=== PATIENT | female | born 1975 | race Caucasian/White ===

== ENCOUNTER 2019-09-07 16:17 | Emergency (ER) | payer OTHER ==
[2019-09-07 16:22] VITALS: RESP 18; TEMP 98.6
[2019-09-07] MEDS ORDERED: SODIUM CHLORIDE 0.9% 1,000 ML IV ONE ×2 (16:47→18:38)
[2019-09-07] MEDS ORDERED: SODIUM CHLORIDE 0.9% 500 ML 500 ML IV ONE (16:47)
[2019-09-07] MEDS ORDERED: SODIUM CHLORIDE 0.9% 1,000 ML IV SCH (17:00)
[2019-09-07 17:15] LABS: Basophils % (A) 0 %; Eosinophils # (A) 0.2 k/uL (0-0.7); Eosinophils % (A) 2 %; HCT 43.2 % (34.0-46.0); Lymphocytes % (A) 8 %; MCHC 34.8 g/dL (31.0-37.0); MCV 92.1 fL (80.0-100.0); Mean Platelet Volume 9.7; Monocytes # (A) 0.3 k/uL (0-1.0); Monocytes % (A) 2 %; Neutrophils # (A) 10.6 k/uL (1.3-7.7); Neutrophils % (A) 87 %; Platelet Count 176 k/uL (150-450); RDW 12.9 % (11.5-15.5); WBC 12.1 k/uL (3.8-10.6)
[2019-09-07 17:35] LABS: AST 55 U/L (14-36); African American GFR (CKD) >90 (>60 ml/min/1.73 sqM); Albumin 4.3 g/dL (3.5-5.0); Alkaline Phosphatase 105 U/L (38-126); Amylase 32 U/L (30-110); Anion Gap 12 mmol/L; Blood Urea Nitrogen 5 mg/dL (7-17); Calcium 9.2 mg/dL (8.4-10.2); Carbon Dioxide 18 mmol/L (22-30); Chloride 106 mmol/L (98-107); Glucose 120 mg/dL (74-99); Non-African American GFR(CKD) >90 (>60 ml/min/1.73 sqM); Potassium 3.5 mmol/L (3.5-5.1); Sodium 136 mmol/L (137-145); Total Protein 7.1 g/dL (6.3-8.2)
[2019-09-07 17:37] LABS: Amorphous Sediment,Urine Occasional /hpf; Appearance,Urine Turbid (Clear); Bilirubin,Urine Negative (Negative); Blood,Urine Trace (Negative); Color,Urine Light Brown; Glucose,Urine (UA) Negative (Negative); Ketones,Urine Trace (Negative); Leukocyte Esterase,Urine Trace (Negative); Mucus,Urine Many /hpf; Nitrite,Urine Negative (Negative); PH, Urine 5.5 (5.0-8.0); Protein,Urine 1+ (Negative); RBC,Urine 5 /hpf (0-5); Specific Gravity,Urine 1.022 (1.001-1.035); Squamous Epithelial Cell,Urine 5 /hpf (0-4)
[2019-09-07 17:41] LABS: ALT 29 U/L (4-34)
--- NOTE | 2019-09-07 17:43 | US ---
EXAMINATION TYPE: US abdomen limited DATE OF EXAM: 09/07/2019 COMPARISON: NONE CLINICAL HISTORY: RUQ Pain. abd pain with diarrhea and fever today EXAM MEASUREMENTS: Liver Length: 18.0 cm Gallbladder Wall: 0.1 cm CBD: 0.6 cm Right Kidney: 11.0 x 4.5 x 4.2 cm Pancreas: wnl Liver: wnl Gallbladder: wnl Evidence for sonographic Kirk's sign: no CBD: wnl Right Kidney: wnl IMPRESSION: Normal exam. No gallstones or dilated ducts. No focal liver defect.
--- NOTE | 2019-09-07 18:27 | CT ---
EXAMINATION TYPE: CT abdomen pelvis w con DATE OF EXAM: 09/07/2019 COMPARISON: HISTORY: Right side abdominal pain CT DLP: 773 mGycm Automated exposure control for dose reduction was used. CONTRAST: Performed with IV Contrast, patient injected with 100 mL of Isovue 300. CT scan abdomen pelvis. History right side pain. Comparison none. TECHNIQUE: Multiple axial sections were obtained from the diaphragm to the floor the pelvis with IV contrast. FINDINGS: Lung bases are clear. There is no pleural effusion. Heart size is normal. Liver spleen stomach pancreas gallbladder appear normal. Bile ducts are not dilated. There is no adrenal mass. Kidneys show satisfactory contrast opacification. There is no hydronephrosi s. Ureters are not dilated. There is some free fluid in the pelvis. Bladder is almost empty. There ar e numerous surgical clips in the pelvis. There is hysterectomy. There is no inguinal hernia. I see no sign of a bowel obstruction. Appendix is inferior and medial and appears normal. There is no mesente servando edema. There is no ascites. There is no sign of free air. Lumbar vertebra have normal alignment. There is narrowing at L5-S1 disc with vacuum disc. Facet joint s are intact. The bony pelvis appears intact. IMPRESSION: Pelvic surgery. There is free fluid in the pelvis that measures up to 1 cm in thickness. Clinical sig nificance is not clear. Normal appendix.
[2019-09-07] MEDS ORDERED: HYDROmorphone 0.5 MG/0.5 ML SYRINGE IVP STA (18:38)
[2019-09-07] MEDS ORDERED: ONDANSETRON 4 MG/2 ML VIAL IVP STA (18:38)
[2019-09-07 18:50] VITALS: BP 108/66; PULSE 92
--- NOTE | 2019-09-07 19:10 | ED ---
Abdominal Pain HPI - General Chief Complaint: Abdominal Pain Stated Complaint: Abd pain, fever Time Seen by Provider: 09/07/19 16:24 Source: patient Mode of arrival: ambulatory Limitations: no limitations - History of Present Illness Initial Comments: 44-year-old male presenting today for chief complaint of abdominal pain nausea vomiting diarrhea. Patient states that she has chronic right-sided abdominal pain and no one seems to know what is going on. She states that she has had her gallbladder evaluated a few years ago and states that this was negative she states she's also had upper EGD and lower EGD in the past. Patient states that today she is having profuse diarrhea and an episode of vomiting. Patient states she has some nausea. Patient states that she was ready associated fever but denies recording a temperature. Patient states that due to the diarrhea she decided to come to the ER. Denies abnormal symptoms yesterday. Patient states that the right sided abdominal pain is slightly worse than her baseline, aching in nature, denies radiation. Overall poor at describing pain. Upon arrival patient appears well on arrival. - Related Data Previous Rx's Medication Instructions Recorded Cephalexin [Keflex] 500 mg PO Q12HR 3 Days #6 cap 09/07/19 Ondansetron Odt [Zofran Odt] 4 mg PO Q8HR PRN 7 Days #21 tab 09/07/19 Allergies Allergy/AdvReac Type Severity Reaction Status Date / Time No Known Allergies Allergy Verified 09/07/19 16:22 Review of Systems ROS Statement: Those systems with pertinent positive or pertinent negative responses have been documented in the HPI. ROS Other: All systems not noted in ROS Statement are negative. Past Medical History Past Medical History: GERD/Reflux History of Any Multi-Drug Resistant Organisms: None Reported Past Surgical History: Hysterectomy Additional Past Surgical History / Comment(s): LEEP Smoking Status: Current every day smoker Past Alcohol Use History: Occasional Past Drug Use History: Marijuana General Exam - General Exam Comments Initial Comments: General: The patient is awake and alert, in no distress Eye: Pupils are equal, round and reactive to light, extra-ocular movements are intact. No nystagmus. There is normal conjunctiva bilaterally. No signs of icterus. Cardiovascular: There is a regular rate and rhythm. No murmur, rub or gallop is appreciated. Respiratory: Lungs are clear to auscultation, respirations are non-labored, breath sounds are equal. No wheezes, stridor, rales, or rhonchi. Gastrointestinal: Soft, non-distended, RUQ tenderness to palpation of the abdomen without masses or organomegaly noted. There is no rebound or guarding present. Musculoskeletal: Normal ROM, no tenderness. Strength 5/5. Sensation intact. Radial pulses equal bilaterally 2+. Neurological: A&O x 3. CN II-XII intact grossly, There are no obvious motor or sensory deficits. Coordination appears grossly intact. Speech is normal. Skin: Skin is warm and dry and no rashes or lesions are noted. Psychiatric: Cooperative, appropriate mood & affect, normal judgment. Limitations: no limitations Course Vital Signs 09/07/19 09/07/19 09/07/19 16:19 16:55 18:50 Temperature 98.6 F Pulse Rate 124 H 99 92 Respiratory 18 18 Rate Blood Pressure 122/79 108/66 O2 Sat by Pulse 97 95 Oximetry Medical Decision Making - Medical Decision Making 44-year-old female presenting today for chief complaint of right-sided abdominal pain mostly right upper quadrant on physical examination complaint of diarrhea v omiting. CT revealed 1 cm free fluid patient is more pelvic pain, denies /vaginal bleeding. Patient US (-). CT no other significant findings aside from a liver lesions that patient is to f/u with PCP. Patient was concerned of c.diff but unable to provide sample. Provided tools for sample c ollection and outpatient prescription. Patient symptoms controlled in the ER. Fluids provided, lactic acid felt most likely to be due to dehydration. Discussed labs, CT findings and patient symptoms with Dr. Rosa who recommended discharge at this time with PCP and GI f/u - Lab Data Result diagrams: 09/07/19 17:00 09/07/19 17:00 Lab Results 09/07/19 09/07/19 09/07/19 Range/Units 17:00 17:00 17:00 WBC 12.1 H (3.8-10.6) k/uL RBC 4.70 (3.80-5.40) m/uL Hgb 15.0 (11.4-16.0) gm/dL Hct 43.2 (34.0-46.0) % MCV 92.1 (80.0-100.0) fL MCH 32.0 (25.0-35.0) pg MCHC 34.8 (31.0-37.0) g/dL RDW 12.9 (11.5-15.5) % Plt Count 176 (150-450) k/uL Neutrophils % 87 % Lymphocytes % 8 % Monocytes % 2 % Eosinophils % 2 % Basophils % 0 % Neutrophils # 10.6 H (1.3-7.7) k/uL Lymphocytes # 1.0 (1.0-4.8) k/uL Monocytes # 0.3 (0-1.0) k/uL Eosinophils # 0.2 (0-0.7) k/uL Basophils # 0.0 (0-0.2) k/uL Sodium 136 L (137-145) mmol/L Potassium 3.5 (3.5-5.1) mmol/L Chloride 106 (98-107) mmol/L Carbon Dioxide 18 L (22-30) mmol/L Anion Gap 12 mmol/L BUN 5 L (7-17) mg/dL Creatinine 0.54 (0.52-1.04) mg/dL Est GFR (CKD-EPI)AfAm >90 (>60 ml/min/1.73 sqM) Est GFR (CKD-EPI)NonAf >90 (>60 ml/min/1.73 sqM) Glucose 120 H (74-99) mg/dL Lactic Ac Sepsis Rflx Plasma Lactic Acid Derek (0.7-2.0) mmol/L Calcium 9.2 (8.4-10.2) mg/dL Total Bilirubin 1.0 (0.2-1.3) mg/dL AST 55 H (14-36) U/L ALT 29 (4-34) U/L Alkaline Phosphatase 105 (38-126) U/L Total Protein 7.1 (6.3-8.2) g/dL Albumin 4.3 (3.5-5.0) g/dL Amylase 32 (30-110) U/L Lipase 35 (23-300) U/L Urine Color Light Brown Urine Appearance Turbid H (Clear) Urine pH 5.5 (5.0-8.0) Ur Specific Mineral 1.022 (1.001-1.035) Urine Protein 1+ H (Negative) Urine Glucose (UA) Negative (Negative) Urine Ketones Trace H (Negative) Urine Blood Trace H (Negative) Urine Nitrite Negative (Negative) Urine Bilirubin Negative (Negative) Urine Urobilinogen 2.0 (<2.0) mg/dL Ur Leukocyte Esterase Trace H (Negative) Urine RBC 5 (0-5) /hpf Ur Squamous Epith Cells 5 H (0-4) /hpf Amorphous Sediment Occasional H (None) /hpf Urine Mucus Many H (None) /hpf 09/07/19 09/07/19 Range/Units 17:00 17:45 WBC (3.8-10.6) k/uL RBC (3.80-5.40) m/uL Hgb (11.4-16.0) gm/dL Hct (34.0-46.0) % MCV (80.0-100.0) fL MCH (25.0-35.0) pg MCHC (31.0-37.0) g/dL RDW (11.5-15.5) % Plt Count (150-450) k/uL Neutrophils % % Lymphocytes % % Monocytes % % Eosinophils % % Basophils % % Neutrophils # (1.3-7.7) k/uL Lymphocytes # (1.0-4.8) k/uL Monocytes # (0-1.0) k/uL Eosinophils # (0-0.7) k/uL Basophils # (0-0.2) k/uL Sodium (137-145) mmol/L Potassium (3.5-5.1) mmol/L Chloride (98-107) mmol/L Carbon Dioxide (22-30) mmol/L Anion Gap mmol/L BUN (7-17) mg/dL Creatinine (0.52-1.04) mg/dL Est GFR (CKD-EPI)AfAm (>60 ml/min/1.73 sqM) Est GFR (CKD-EPI)NonAf (>60 ml/min/1.73 sqM) Glucose (74-99) mg/dL Lactic Ac Sepsis Rflx Y Plasma Lactic Acid Derek 3.7 H* (0.7-2.0) mmol/L Calcium (8.4-10.2) mg/dL Total Bilirubin (0.2-1.3) mg/dL AST (14-36) U/L ALT (4-34) U/L Alkaline Phosphatase (38-126) U/L Total Protein (6.3-8.2) g/dL Albumin (3.5-5.0) g/dL Amylase (30-110) U/L Lipase (23-300) U/L Urine Color Urine Appearance (Clear) Urine pH (5.0-8.0) Ur Specific Mineral (1.001-1.035) Urine Protein (Negative) Urine Glucose (UA) (Negative) Urine Ketones (Negative) Urine Blood (Negative) Urine Nitrite (Negative) Urine Bilirubin (Negative) Urine Urobilinogen (<2.0) mg/dL Ur Leukocyte Esterase (Negative) Urine RBC (0-5) /hpf Ur Squamous Epith Cells (0-4) /hpf Amorphous Sediment (None) /hpf Urine Mucus (None) /hpf Disposition Clinical Impression: Vomiting, Diarrhea, Lactic acidosis Disposition: HOME SELF-CARE Condition: Good Instructions (If sedation given, give patient instructions): Acute Nausea and Vomiting (ED) Additional Instructions: Please use medication as discussed. Please follow-up with family doctor in the next 2 days. Please return to emergency room if the symptoms increase or worsen or for any other concerns. Prescriptions: Cephalexin [Keflex] 500 mg PO Q12HR 3 Days #6 cap Ondansetron Odt [Zofran Odt] 4 mg PO Q8HR PRN 7 Days #21 tab PRN Reason: Nausea Is patient prescribed a controlled substance at d/c from ED?: No Referrals: None,Stated [Primary Care Provider] - 1-2 days Time of Disposition: 19:10
== END 2019-09-07 19:54 | disposition home or self-care (01) ==
LOC: EC 16:17
DX: R11.10 Vomiting, unspecified (principal); E87.2 Acidosis; R19.7 Diarrhea, unspecified; R10.11 Right upper quadrant pain; F17.200 Nicotine dependence, unspecified, uncomplicated
CPT/HCPCS: 36415; 80053; 82150; 83605; 83690; 85025; 81001; 76705; 74177; 99284; 96374; 96375; 96361 ×3; J2405; J1170; Q9967; 87324

== ENCOUNTER → 2019-09-08 | Outpatient (CLI) | payer OTHER | END | disposition home or self-care (01) | LOC: LABMAIN 10:17 | PROVIDERS: ATTEND Physician Assistant Medical | DX: Z53.9 Procedure and treatment not carried out, unspecified reason (principal) ==

== ENCOUNTER 2024-06-24 12:48 | Day surgery (SDC) | payer OTHER ==
[2024-06-24 14:00] LABS: Mean Platelet Volume 13.5 fL (9.5-12.2); Platelet Count 138 10*3/uL (140-440)
[2024-06-24 14:15] LABS: INR 1.6 (<1.2); Prothrombin Time 16.6 sec (10.0-12.5)
[2024-06-24 14:20] LABS: African American GFR (CKD) >90 (>60 ml/min/1.73 sqM); Non-African American GFR(CKD) >90 (>60 ml/min/1.73 sqM)
[2024-06-24 15:04] VITALS: RESP 18
[2024-06-24] MEDS: ALBUMIN HUMAN 25% 50 ML in EMPTY BAG 1 BAG IVPB SCH (15:12)
[2024-06-24 16:41] VITALS: BP 104/56; PULSE 64
--- NOTE | 2024-06-25 12:09 | US ---
EXAMINATION TYPE: US paracentesis abd w/image DATE OF EXAM: 06/24/2024 3:13 PM CLINICAL INDICATION:Female, 49 years old with history of K72.10 CHRONIC HEPATIC FAILURE WITHOUT COMA; COMPARISON: None. ATTENDING: Dr. Murphy PROCEDURE: Informed consent was obtained. The risks of the procedure were extensively explained incl uding risk of damage to surrounding bowel with perforation and need for additional procedures. Proced ure was performed in the ultrasound procedure suite. Ultrasound imaging of the abdomen demonstrate ascitic fluid. An appropriate access site was localized to the right lower abdomen. Timeout was taken per protocol. The skin was prepped and draped in the u sual sterile fashion and then locally anesthetized with 1% lidocaine. The peritoneal cavity was then accessed via a 5-Syrian one-step needle/catheter. Approximately 6000 cc of clear straw-colored flui d was obtained. Patient tolerated procedure well without immediate complication. Hemostasis at the procedural site w as obtained with a sterile bandage placed. The patient was monitored in the holding area following th e procedure and was subsequently discharged in stable condition. IMPRESSION: Ultrasound guided paracentesis, with approximately 6000 cc of clear straw-colored fluid drained for t herapeutic purposes. No immediate complications were evident. [facility], , 06/25/2024 12:07 PM
== END 2024-06-24 16:25 | disposition home or self-care (01) ==
LOC: RADPROMAIN 12:48
PROVIDERS: ATTEND Internal Medicine
DX: K72.10 Chronic hepatic failure without coma (principal)
CPT/HCPCS: 82565; 85049; 85610; 36415; 49083; P9047

== ENCOUNTER 2024-07-04 08:07 | Day surgery (SDC) | payer OTHER ==
[2024-07-04] MEDS: ALBUMIN HUMAN 25% 50 ML in EMPTY BAG 1 BAG IVPB SCH (09:22)
[2024-07-04 09:24] LABS: Mean Platelet Volume 12.3 fL (9.5-12.2); Platelet Count 116 10*3/uL (140-440)
[2024-07-04 09:33] LABS: INR 1.7 (<1.2); Prothrombin Time 17.5 sec (10.0-12.5)
[2024-07-04 09:43] VITALS: BP 115/78; PULSE 64; RESP 18; TEMP 98.2
[2024-07-04 09:51] LABS: African American GFR (CKD) 84 (>60 ml/min/1.73 sqM); Non-African American GFR(CKD) 73 (>60 ml/min/1.73 sqM)
--- NOTE | 2024-07-04 11:50 | US ---
EXAMINATION TYPE: US paracentesis abd w/image DATE OF EXAM: 07/04/2024 9:54 AM COMPARISON: prior paracentesis. CLINICAL INDICATION:Female, 49 years old with history of K72.10 chronic hepatic failure; , ascites ATTENDING: Dr. Marcos Wu PROCEDURE: Informed consent was obtained. The risks of the procedure were extensively explained incl uding risk of damage to surrounding bowel with perforation and need for additional procedures. Prepro cedural imaging was performed and there was small amount of fluid throughout the abdomen. Nodular con tour to liver. Patient and physician elected to be widely one more week before attempting procedure. IMPRESSION: Canceled ultrasound-guided paracentesis. Patient to return in one week. [facility], , 07/04/2024 11:48 AM
== END 2024-07-04 09:30 | disposition home or self-care (01) ==
LOC: RADPROMAIN 08:07
PROVIDERS: ATTEND Internal Medicine
DX: Z53.8 Procedure and treatment not carried out for other reasons (principal); K72.10 Chronic hepatic failure without coma
CPT/HCPCS: 36415; 49083; 76705; 82565; 85049; 85610